=== PATIENT | male | born 1990 | race African-American/Black ===

== ENCOUNTER 2024-11-02 08:52 | Outpatient (CLI) | payer OTHER ==
--- NOTE | 2024-11-02 15:56 | PROCEDURE NOTE ---
Procedure Note Providers to CC ~ Interpretation: [place] EEG Note # Demographics Type of EEG Read: - Routine EEG - video Patient Location: Outpatient First Name: Kvng Last Name: Baljit Date of : 1990 Age: 34 Gender: Male Facility: [facility] Time of Initial Page ([facility] ): 11/02/2024 09:40 Time of Return Call ([facility] Time): 11/02/2024 09:45 # EEG Interpretation Start Time of EEG Read ([facility] ): 11/02/2024 09:04 Stop Time of EEG Read ([facility] ): 11/02/2024 09:25 Duration: 0h 21m Technical Details: - The EEG electrodes were placed using the standard International 10-20 system of electrode placement. Video and an accessory EKG lead were used during the course of this study. - This study was recorded using the [employer] EEG software Indication: - seizure # Description Photic Stimulation: Performed Hyperventilation: performed Phases Captured: - awake - drowsy Symmetry: symmetric Posterior Dominant Rhythm: - present, attenuates on eye opening 10.5Hz Predominant Frequencies: - posterior dominant alpha (8-12 Hz) - abundant (50-89%) Superimposed Frequencies: - theta (4-7 Hz) - rare (<1%) Amplitude: normal Reactivity: yes Variability: yes Continuity: continuous # Abnormalities Stimulation: - photic stimulation does NOT cause abnormalities - hyperventilation does NOT cause abnormalities Epileptiform Abnormalities: - NOT present Focal Slowing: no Seizure: - NOT present # Impression Impression: normal # Clinical Correlation Clinical Correlation: This is a normal EEG in the awake and drowsy state. A normal EEG does not exclude nor support the diagnosis of epilepsy. # Demographics First Name: Kvgn Last Name: Baljit Facility: [facility] DELMAR RODRIGUEZ MD November 02, 2024 15:55
== END 2024-11-02 23:59 | disposition home or self-care (01) ==
LOC: RAD 08:52
PROVIDERS: ATTEND Student in an Organized Health Care Education/Training Program
DX: G40.909 Epilepsy, unspecified, not intractable, without status epilepticus (principal)
CPT/HCPCS: 95816